=== PATIENT | female | born 1975 ===

== ENCOUNTER 2017-12-30 13:33 | Emergency (ER) | payer OTHER ==
[2017-12-30] MEDS ORDERED: Sodium Chloride 0.9% 1,000 ML IV ONE (14:26)
--- NOTE | 2017-12-30 14:54 | C.PDOC ---
History Of Present Illness 42 y/o female presents to ED for evaluation of suprapubic abdominal pain radiating to back for 1 day, dysuria. Otherwise, pt denies fever, chills, recent illness, CP, SOB, dyspnea, diaphoresis, vaginal discharge, hematuria, nausea, vomiting or any other complaints at this time. LMP 12/13/17 Ambulate to Ed for evaluation, not in nay apparent distress. Time Seen by Provider: 12/30/17 14:09 Chief Complaint (Nursing): Abdominal Pain History Per: Patient History/Exam Limitations: no limitations Onset/Duration Of Symptoms: Days Current Symptoms Are (Timing): Still Present Location Of Pain/Discomfort: Suprapubic Radiation Of Pain To:: Back Quality Of Discomfort: Pressure, "Pain" Associated Symptoms: Urinary Symptoms. denies: Fever, Chills, Nausea, Vomiting Past Medical History Reviewed: Historical Data, Nursing Documentation, Vital Signs Vital Signs: Last Vital Signs Temp 98.6 F 12/30/17 17:19 Pulse 91 H 12/30/17 17:19 Resp 20 12/30/17 17:19 BP 98/61 L 12/30/17 17:19 Pulse Ox 98 12/30/17 17:19 - Medical History PMH: No Chronic Diseases Surgical History: No Surg Hx Family History: States: No Known Family Hx - Social History Hx Alcohol Use: No Hx Substance Use: No - Immunization History Hx Tetanus Toxoid Vaccination: No Hx Influenza Vaccination: No Hx Pneumococcal Vaccination: No Review Of Systems Constitutional: Negative for: Fever, Chills Cardiovascular: Negative for: Chest Pain Gastrointestinal: Positive for: Abdominal Pain. Negative for: Nausea, Vomiting Genitourinary: Positive for: Dysuria. Negative for: Vaginal Discharge, Vaginal Bleeding Musculoskeletal: Positive for: Back Pain Skin: Negative for: Rash Physical Exam - Physical Exam Appears: Well, Non-toxic, No Acute Distress Skin: Warm, Dry, No Rash Head: Normacephalic Eye(s): bilateral: PERRL Nose: No Flaring, No Discharge Oral Mucosa: Moist, No Drooling Tongue: Normal Appearing Throat: No Erythema Neck: Trachea Midline, Supple Cardiovascular: Rhythm Regular, No Murmur Respiratory: No Decreased Breath Sounds, No Accessory Muscle Use, No Rales, No Rhonchi, No Stridor, No Wheezing Gastrointestinal/Abdominal: Soft, Tenderness (Suprapubic, moderate), No Distention, No Guarding, No Rebound Back: No CVA Tenderness, No Paraspinal Tenderness Extremity: Normal ROM, No Pedal Edema, Capillary Refill (<2 seconds) Neurological/Psych: Oriented x3, Normal Speech, Normal Cognition, Normal Motor, Normal Sensation, Normal Reflexes ED Course And Treatment - Laboratory Results Result Diagrams: 12/30/17 15:19 12/30/17 15:19 Lab Interpretation: Abnormal Urine POC: Negative O2 Sat by Pulse Oximetry: 100 (RA) Pulse Ox Interpretation: Normal Progress Note: On re-evaluation, pt is afebrile, hemodynamiclay stable. Non- toxic, tolerate Po well in ED. PulsEOx 100% RA Neck; Supple, (-) meningeal sign. ENT: no acute findings. Lungs: CTA B/L, BS equal B/L. Abd: benign, (-) guarding, (-) rebound. back: (-) CVA tenderness. neurologicaly intact. Blood work review, mild leukocytosis. CMP- no abnormalities. UA (+) nitrates. Pt has clinical findings c/w UTI r/o early pyelonephritis. Pt advised. ref. to F/ u with PMD in 2-3 days for re-eavl. return to Ed if any worsening or new changes. Disposition Counseled Patient/Family Regarding: Studies Performed, Diagnosis, Need For Followup, Rx Given - Disposition Referrals: [facility] [Outside] [facility] [Outside] Disposition: HOME/ ROUTINE Disposition Time: 16:30 Condition: STABLE Additional Instructions: Encourage fluids Take medication as prescribed Follow up with PMD in 2-3 days for re-evaluation. return to ED if any worsening or new changes. Prescriptions: Cefdinir [Omnicef] 300 mg PO BID #14 cap Phenazopyridine [Phenazopyridine HCl] 200 mg PO Q12 #6 tab Instructions: Urinary Tract Infection, Adult (DC) Forms: [facility] (Hebrew) Print Language: GREENLANDIC - Clinical Impression Clinical Impression: UTI (urinary tract infection) - PA / [employer] / Resident Statement MD/DO has reviewed & agrees with the documentation as recorded. - Scribe Statement The provider has reviewed the documentation as recorded by the Jil Valdivia All medical record entries made by the Ebibkathryn were at my direction and personally dictated by me. I have reviewed the chart and agree that the record accurately reflects my personal performance of the history, physical exam, medical decision making, and the department course for this patient. I have also personally directed, reviewed, and agree with the discharge instructions and disposition.
[2017-12-30] MEDS ORDERED: Sodium Chloride 0.9% 1,000 ML ONE (15:23)
[2017-12-30 15:24] LABS: BASO # 0.1 K/uL (0.0-0.2); EOS # 0.1 K/uL (0.0-0.7); EOS % 0.4 % (0.0-4.0); HEMOGLOBIN 11.8 g/dL (11.0-16.0); LYMPH # 2.4 K/uL (1.0-4.3); LYMPH % 19.2 % (20.0-40.0); MEAN CELL VOLUME 91.3 fL (81.0-99.0); MEAN CORPUSCULAR HEMOGLOBIN 31.6 pg (27.0-31.0); MEAN CORPUSCULAR HGB CONC 34.6 g/dL (33.0-37.0); MEAN PLATELET VOLUME 7.5 fL (7.2-11.7); MONO # 0.8 K/uL (0.0-0.8); MONO % 6.5 % (0.0-10.0); NEUT # 9.2 K/uL (1.8-7.0); NEUT % 72.9 % (50.0-75.0); NRBC % 0.1 % (0.0-2.0); RBC 3.74 Mil/uL (3.80-5.20); RED CELL DISTRIBUTION WIDTH 12.8 % (11.5-14.5); WHITE BLOOD COUNT 12.6 K/uL (4.8-10.8)
[2017-12-30 15:31] LABS: HCG,QUALITATIVE URINE NEGATIVE (NEGATIVE)
[2017-12-30 15:36] LABS: SQUAMOUS EPITHIAL 2 /hpf (0-5); URINE BILIRUBIN NEGATIVE (NEGATIVE); URINE BLOOD 2+ (NEGATIVE); URINE CLARITY Hazy (Clear); URINE COLOR Yellow (YELLOW); URINE GLUCOSE (UA) NORMAL (Normal); URINE LEUKOCYTE ESTERASE 2+ Leu/uL (Negative); URINE PROTEIN 2+ mg/dL (NEGATIVE); URINE UROBILINOGEN NORMAL mg/dL (0.2-1.0); WBC CLUMPS FEW /hpf
[2017-12-30 15:38] LABS: URINE BACTERIA FEW (<OCC)
[2017-12-30 15:40] LABS: ALBUMIN 3.9 g/dL (3.5-5.0); ALT/SGPT 19 U/L (9-52); BLOOD UREA NITROGEN 19 mg/dL (7-17); GFR AFRICAN-AMERICAN > 60; GFR NON-AFRICAN AMERICAN > 60; LIPASE 120 U/L (23-300)
[2017-12-30 15:45] LABS: AST/SGOT 28 U/L (14-36)
[2017-12-30] MEDS ORDERED: cefTRIAXone IV 1 gm in Dextros 50 ML IVPB ONE (17:02)
[2017-12-30 17:19] VITALS: BP 98/61; PULSE 91; RESP 20; TEMP 98.6
[2017-12-30 17:55] VITALS: O2SAT 100
== END 2017-12-30 17:46 | disposition home or self-care (01) ==
LOC: C.ER 13:33
DX: N39.0 Urinary tract infection, site not specified (principal)
CPT/HCPCS: 80053; 81001; 83690; 84703; 85025; 87086; 96361; 96374; 96375; 99284; C9113; J0696; J1885; J2405; J7040